=== PATIENT | female | born 1960 | race Caucasian/White ===

== ENCOUNTER 2018-08-29 05:39 | Day surgery (SDC) | payer BC ==
[2018-08-26 12:37] LABS: BASOPHILS # (AUTO) 0.05 x10^3/uL (0-0.1); BASOPHILS % (AUTO) 1 % (0-1); EOSINOPHILS # (AUTO) 0.11 x10^3/uL (0-0.4); EOSINOPHILS % (AUTO) 2 % (1-7); LYMPHOCYTES # (AUTO) 2.31 x10^3/uL (1-3.4); LYMPHOCYTES % (AUTO) 39 % (22-44); MD NO; MEAN CORPUSCULAR HEMOGLOBIN 32.5 pg (27.0-34.8); MEAN CORPUSCULAR HGB CONC 33.7 g/dL (32.4-35.8); MEAN CORPUSCULAR VOLUME 96.6 fL (80-100); MEAN PLATELET VOLUME 8.9 fL (7.4-10.4); MONOCYTES % (AUTO) 7 % (2-9); NEUTROPHILS # (AUTO) 3.11 x10^3/uL (1.8-6.8); NEUTROPHILS % (AUTO) 52 % (42-75); PLATELET COUNT 185 x10^3/uL (130-400); RED BLOOD COUNT 4.35 x10^6/uL (3.82-5.3); RED CELL DISTRIBUTION WIDTH 13.9 % (9.6-15.2)
[2018-08-26 12:48] LABS: ALANINE AMINOTRANSFERASE 46 U/L (12-78); ALBUMIN 4.2 g/dL (3.4-5.0); ANION GAP 7 mmol/L (5-15); CALCIUM 8.7 mg/dL (8.5-10.1); CHLORIDE 107 mmol/L (98-107); CREATININE 0.68 mg/dL (0.55-1.02)
[2018-08-26 12:53] LABS: ALKALINE PHOSPHATASE 77 U/L (45-117); BILIRUBIN,TOTAL 0.4 mg/dL (0.2-1.0); TOTAL PROTEIN 7.9 g/dL (6.4-8.2)
[~2018-08-29] VITALS: Ht 162.6 cm; Wt 76.0 kg
[~2018-08-29 05:39] MED LIST: ASPI-496 PO; CARV-39 PO; EXEN2VIA SQ-INSULIN; GABA300C10 PO; INSU200I4 SQ-INSULIN; METF10007 PO; NITR50CA PO; OMEP40CA6 PO; ROSU20TA PO; SERT100T5 PO; TRAZ-137 PO
[2018-08-29] MEDS ORDERED: DEXTROSE 50%, 50ML SYRINGE ONE (06:28)
[2018-08-29] MEDS: LACTATED RINGERS 1,000 ML IV SCH ×2 (06:39→12:11)
[2018-08-29] MEDS ORDERED: BUPIVACAINE/PF 0.25% ONE (06:44)
[2018-08-29] MEDS ORDERED: INDOCYANINE GREEN 25 MG VIAL ONE (06:44)
[2018-08-29 06:45] VITALS: BP 152/80
[2018-08-29] MEDS ORDERED: EPINEPHRINE 1 MG/ML, 1ML ONE (06:45)
[2018-08-29] MEDS ORDERED: HEPARIN 1,000 UNITS/ML, 10ML ONE (06:46)
[2018-08-29] MEDS ORDERED: DEXTROSE 50%, 50ML SYRINGE IVPush ONE ×2 (07:00→10:30)
[2018-08-29] MEDS ORDERED: FENTANYL PF 250 MCG/5ML ONE (07:14)
[2018-08-29] MEDS ORDERED: MIDAZOLAM 1 MG/ML, 2ML ONE (07:14)
[2018-08-29] MEDS ORDERED: DEXAMETHASONE 4 MG/ML, 1ML ONE (07:43)
[2018-08-29] MEDS ORDERED: METOPROLOL 1 MG/ML, 5ML ONE (07:43)
[2018-08-29] MEDS ORDERED: CEFAZOLIN 1,000 MG ONE (07:43)
[2018-08-29] MEDS ORDERED: ROCURONIUM 10 MG/ML,10ML ONE (07:43)
[2018-08-29] MEDS ORDERED: ONDANSETRON 2MG/ML, 2ML ONE (07:43)
[2018-08-29] MEDS ORDERED: PROPOFOL 10 MG/ML, 20ML ONE ×2 (07:43)
[2018-08-29] MEDS ORDERED: NEOSTIGMINE 1 MG/ML, 10ML ONE (07:43)
[2018-08-29] MEDS ORDERED: GLYCOPYRROLATE 0.2MG/1ML, 5ML ONE (07:43)
[2018-08-29] MEDS ORDERED: MEPERIDINE/PF 25MG/0.5ML IVPush PRN (09:30)
[2018-08-29] MEDS ORDERED: FENTANYL PF 100 MCG/2ML IV PRN (09:30)
[2018-08-29] MEDS ORDERED: ALBUTEROL SULFATE 2.5 MG/3 ML NPPB PRN (09:30)
[2018-08-29] MEDS ORDERED: ACETAMINOPHEN 325 MG TABLET PO PRN (09:30)
[2018-08-29] MEDS ORDERED: OXYcodone 5 MG/5 ML ORAL.SOL UDC PO PRN (09:30)
[2018-08-29] MEDS ORDERED: hydrALAzine 20 MG/ML, 1ML IV PRN (09:30)
[2018-08-29] MEDS ORDERED: LABETALOL 5MG/ML, 20ML IV PRN (09:30)
[2018-08-29] MEDS ORDERED: PROMETHAZINE 25 MG/ML, 1ML IV PRN (09:30)
[2018-08-29] MEDS ORDERED: KETOROLAC 30 MG/1 ML IV PRN (09:30)
[2018-08-29] MEDS ORDERED: HYDROmorphone 2 MG/ML, 1ML IVPush PRN (09:30)
[2018-08-29] MEDS ORDERED: hydrALAzine 20 MG/ML, 1ML ONE (10:16)
[2018-08-29] MEDS ORDERED: OXYcodone 5 MG/5 ML ORAL.SOL UDC ONE (10:22)
[2018-08-29] MEDS ORDERED: HYDROmorphone 2 MG/ML, 1ML ONE (10:25)
[2018-08-29] MEDS ORDERED: KETOROLAC 30 MG/1 ML ONE (10:39)
[2018-08-29] MEDS ORDERED: OXYcodone/APAP 5/325MG TABLET PO PRN (16:13)
== END 2018-08-29 16:55 | disposition home or self-care (01) ==
LOC: OUT 05:39 → EDSTATUS 09:00 → 4NOR 12:30 → OUT 16:55
PROVIDERS: ATTEND Specialist
DX: D27.0 Benign neoplasm of right ovary (principal); D27.1 Benign neoplasm of left ovary; I10 Essential (primary) hypertension; E11.9 Type 2 diabetes mellitus without complications; K21.9 Gastro-esophageal reflux disease without esophagitis; F32.9 Major depressive disorder, single episode, unspecified; F41.9 Anxiety disorder, unspecified; E78.00 Pure hypercholesterolemia, unspecified; G43.909 Migraine, unspecified, not intractable, without status migrainosus; I49.9 Cardiac arrhythmia, unspecified; Z88.8 Allergy status to other drugs, medicaments and biological substances; Z79.899 Other long term (current) drug therapy; Z90.710 Acquired absence of both cervix and uterus; Z98.890 Other specified postprocedural states
CPT/HCPCS: 36415; 58661; 71046; 80053; 82378; 82947; 82962; 85025; 86304; 86850; 86900; 86923; 88112; 88305; 88307; 88331; 93005; J0171; J0360; J0690; J1100; J1644; J1885; J2250; J2405; J2704; J2710; J3010; J3490; J7120; G0378